=== PATIENT | female | born 1970 | race African-American/Black ===

== ENCOUNTER 2021-03-20 11:32 | Emergency (ER) | payer OTHER, SELFPAY ==
[2021-03-20 11:44] VITALS: BP 142/83; PULSE 75; RESP 20; TEMP 36.7; O2SAT 98
--- NOTE | 2021-03-20 12:04 | ED.URI ---
HPI - URI/Sore Throat General Chief Complaint: Upper Respiratory Infection Stated Complaint: Sore Throat, Abd pain, Nausea, Back pain Time Seen by Provider: 03/20/21 12:04 Source: patient Mode of arrival: ambulatory Limitations: no limitations History of Present Illness HPI Narrative: Patient presents with a sore throat for the past 2 weeks. Patient states she tested positive for COVID-19 2 months ago and is fully immunized for COVID-19. Patient states she has postnasal drainage but no other symptoms. MD elicited complaint: sore throat Related Data Home Medications Medication Instructions Recorded Confirmed aspirin 81 mg tablet,delayed 81 mg PO DAILY 11/10/19 03/20/21 release losartan 100 mg tablet 100 mg PO DAILY 11/10/19 03/20/21 metformin 1,000 mg tablet 1,000 mg PO BID 11/10/19 03/20/21 rosuvastatin 10 mg tablet 10 mg PO DAILY 11/10/19 03/20/21 amlodipine 10 mg tablet 10 mg PO DAILY 02/10/21 03/20/21 calcium carbonate 500 mg calcium 500 mg PO DAILY tablet 02/10/21 03/20/21 (1,250 mg) tablet cholecalciferol (vitamin D3) 250 250 mcg PO WEEKLY 02/10/21 03/20/21 mcg (10,000 unit) capsule empagliflozin [Jardiance] 10 mg PO DAILY 03/20/21 03/20/21 Allergies Allergy/AdvReac Type Severity Reaction Status Date / Time lisinopril AdvReac Mild Cough Verified 03/20/21 11:57 Review of Systems Review of Systems: CONSTITUTIONAL: Denies fever, chills, or sweats. EYES: Denies visual changes, redness, or discharge. ENT: Denies rhinorrhea, congestion, sore throat, or otalgia. CARDIOVASCULAR: Denies chest pain, palpitations, or edema. RESPIRATORY: Denies cough or dyspnea. GASTROINTESTINAL: Denies abdominal pain, nausea, vomiting, or diarrhea. GENITOURINARY: Denies dysuria or hematuria. SKIN: Denies rash or itching. MUSCULOSKELETAL: Denies back pain, joint pain, or myalgia. NEUROLOGIC: Denies headache, numbness, or weakness. PSYCHIATRIC: Denies anxiety or depression. [facility] Past Medical History Medical History Anxiety Bereavement Chest discomfort Diabetes mellitus type 2 in obese Essential hypertension GERD (gastroesophageal reflux disease) History of asthma Inadequate sleep hygiene Insomnia Morbid obesity Polycystic ovaries Renal agenesis Sleep pattern disturbance Surgical History Surgical History History of cardiac cath Family History Family History Mother Hypertension Diabetes mellitus Kidney disease Cerebrovascular accident Hypercholesteremia Grandparent Diabetes mellitus Hypertension Hypercholesteremia Grandparent Diabetes mellitus Hypertension Sibling Hypertension Diabetes mellitus Heart disease Father Heart disease Hypertension Diabetes mellitus Grandparent Cerebrovascular accident Social History Social History Smoking status: Never smoker Alcohol intake: never Comments At time of signature, agree with nursing past medical, surgical, social and family history. There is no relevant family history pertinent to the presenting complaint Exam Narrative: GENERAL: Well-appearing, well-nourished, and in no acute distress. HEAD: Normocephalic, atraumatic. EYES: PERRLA and EOMI. ENT: Nares clear, no rhinorrhea or epistaxis. Mucous membranes moist. Mild pharyngeal erythremia mild amount of postnasal drainage NECK: Supple. CHEST: Clear to auscultation. No respiratory distress. HEART: Regular rate and rhythm. No murmur heard. Normal peripheral pulses. ABDOMEN: Soft, nontender, nondistended, normal active bowel sounds. EXTREMITIES: Normal range of motion. No edema. SKIN: Warm, dry, no rash. NEURO: No focal deficits. Alert and oriented x3. [place] Coma Scale Eye Opening: Spontaneous 4 [place] Coma Scale Motor: Obeys Commands 6 [place] Coma Scale Verbal: [place]
== END 2021-03-20 12:18 | disposition home or self-care (01) ==
PROVIDERS: Emergency Provider Nurse Practitioner Family; PCP Nurse Practitioner Family
DX: R11.0 Nausea (principal); R09.82 Postnasal drip; I10 Essential (primary) hypertension; K21.9 Gastro-esophageal reflux disease without esophagitis; J45.909 Unspecified asthma, uncomplicated; E11.9 Type 2 diabetes mellitus without complications; Z79.84 Long term (current) use of oral hypoglycemic drugs; E66.01 Morbid (severe) obesity due to excess calories; Z79.82 Long term (current) use of aspirin
CPT/HCPCS: 87081; 87880; 99213; G0463

== ENCOUNTER 2021-11-07 08:08 | Outpatient (CLI) | payer OTHER, SELFPAY | END 2021-11-07 08:09 | disposition home or self-care (01) | LOC: ANHAUDIO 08:09 | PROVIDERS: PCP Nurse Practitioner Family; Visit Provider Otolaryngology | DX: R42 Dizziness and giddiness (principal) | CPT/HCPCS: 92537; 92540; 92546; 92557; 92567 ==

== ENCOUNTER 2024-04-06 19:26 | Emergency (ER) | payer OTHER, SELFPAY ==
--- NOTE | ~2024-04-06 | XR_ITS ---
EXAMINATION: XR shoulder RT min 2V DATE: 04/06/2024 22:21 INDICATION: Right shoulder pain, stiffness and decreased range of motion TECHNIQUE: AP internally and externally rotated, AP oblique externally rotated and transscapular Y vi ews of the right shoulder were obtained. COMPARISON: None FINDINGS: Normal alignment. No fracture.Mild glenohumeral and moderate acromioclavicular osteoarthritis. Small dystrophic calcifications in the soft tissues along the right greater tuberosity consistent with eb cific rotator cuff tendinitis likely involving the infraspinatus and teres minor tendons. Soft tissue s are otherwise unremarkable. Visualized portion of the right lung is clear. IMPRESSION: 1. Right rotator cuff calcific tendinitis. 2. Mild right glenohumeral and moderate acromioclavicular osteoarthritis. Reviewed, dictated and finalized at location A.
[2024-04-06 19:27] VITALS: BP 149/85; PULSE 69; RESP 14; TEMP 36.3; O2SAT 99
--- NOTE | 2024-04-06 22:10 | ED.UPPEXIN ---
HPI - Extremity Injury (Upper) General Chief Complaint: Extremity Injury, Upper Stated Complaint: unable to lift right arm Time Seen by Provider: 04/06/24 20:57 Source: patient Mode of arrival: ambulatory Limitations: no limitations History of Present Illness HPI narrative: Patient is a 53 y/o female who presents the ED with report of right shoulder pain. Patient reports she woke up on Saturday morning with pain throughout her right shoulder. She states she has a hard time even lifting up her right arm due to the pain. Has been taking Tylenol at home with minimal relief. Denies any other known injury. Denies numbness, neck pain, chest pain, shortness of breath. Denies weakness of arm. 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 Related Data Home Medications Medication Instructions Recorded Confirmed aspirin 81 mg tablet,delayed 81 mg PO DAILY 11/10/19 05/08/23 release metformin 1,000 mg tablet 1,000 mg PO BID 11/10/19 05/08/23 rosuvastatin 10 mg tablet 10 mg PO DAILY 11/10/19 05/08/23 calcium carbonate (Calcium 500) 500 mg PO DAILY 02/10/21 05/08/23 cholecalciferol (vitamin D3) 250 250 mcg PO WEEKLY 02/10/21 05/08/23 mcg (10,000 unit) capsule amlodipine 10 mg tablet 5 mg PO DAILY 05/08/23 05/08/23 dulaglutide 3 mg/0.5 mL mg subcut 05/08/23 05/08/23 subcutaneous pen injector (Trulicity) losartan 50 mg tablet 50 mg PO DAILY 05/08/23 05/08/23 Allergies Allergy/AdvReac Type Severity Reaction Status Date / Time lisinopril AdvReac Mild Cough Verified 04/06/24 19:31 Review of Systems Review of Systems: All systems reviewed & are unremarkable except as noted in HPI. All systems reviewed & are unremarkable except as noted in HPI and below PMFSH Past Medical History Medical History Anxiety Bereavement Chest discomfort Diabetes mellitus type 2 in obese Essential hypertension GERD (gastroesophageal reflux disease) History of asthma Inadequate sleep hygiene Insomnia Morbid obesity Polycystic ovaries Renal agenesis Sleep pattern disturbance Surgical History Surgical History History of cardiac cath Family History Family History Mother Hypertension Diabetes mellitus Kidney disease Cerebrovascular accident Hypercholesteremia Grandparent Diabetes mellitus Hypertension Hypercholesteremia Grandparent Diabetes mellitus Hypertension Sibling Hypertension Diabetes mellitus Heart disease Father Heart disease Hypertension Diabetes mellitus Grandparent Cerebrovascular accident Social History Social History Smoking status: Never smoker Alcohol intake: never Exam Narrative: GENERAL: Well appearing, obese with BMI of 38.6, non-toxic, in no acute distress. HEAD: Normocephalic, atraumatic. NECK: No midline cervical spinal tenderness. RESPIRATORY: Airway patent, respirations nonlabored. CARDIOVASCULAR: Regular rate and rhythm. Radial pulses 2+ and easily palpable. MUSCULOSKELETAL: Limited active range of motion of right shoulder with any movement of RUE. Increased range of motion of R shoulder with passive movement though discomfort and stiffness reported past 90 degrees abduction/flexion. Sensation intact throughout extremity. Equal strip strength bilaterally. No weakness noted of RUE. SKIN: Warm, dry, normal color. NEURO: A&O X3. Speech clear. Cranial nerves II-XII grossly intact. No ataxic movements. PSYCHIATRIC: Appropriate mood and affect. Normal interaction. Course Vital Signs Vital signs: Vital Signs Temperature 97.3 F L 04/06/24 19:27 Pulse Rate 69 04/06/24 19:27 Respiratory Rate 14 04/06/24 19:27 Blood Pressure 149/85 H 04/06/24 19:27 Pulse Oximetry 99 04/06/24 19:27 Oxygen Delivery Room Air 04/06/24
[2024-04-06] MEDS: KETOROLAC (*BKC) 60 MG/2 ML VIAL IM (22:33)
[2024-04-06] MEDS: methylPREDNISolone SOD SUCC 125 MG VIAL IM (22:33)
[2024-04-06 23:31] VITALS: BP 137/84; PULSE 68; RESP 18; O2SAT 98
== END 2024-04-06 23:33 | disposition home or self-care (01) ==
PROVIDERS: Emergency Provider Physician Assistant; PCP Nurse Practitioner Family
DX: S46.911A Strain of unspecified muscle, fascia and tendon at shoulder and upper arm level, right arm, initial encounter (principal); F41.9 Anxiety disorder, unspecified; I10 Essential (primary) hypertension; K21.9 Gastro-esophageal reflux disease without esophagitis; X58.XXXA Exposure to other specified factors, initial encounter
CPT/HCPCS: 73030; 96372; 99284; A4565; J1885; J2919